=== PATIENT | male | born 1950 | race Caucasian/White ===

== ENCOUNTER → 2017-09-05 | Outpatient (CLI) | payer OTHER | LOC: BHLMT 09:00 | PROVIDERS: ATTEND Internal Medicine Interventional Cardiology | DX: I25.5 Ischemic cardiomyopathy (principal); I25.10 Atherosclerotic heart disease of native coronary artery without angina pectoris; E78.00 Pure hypercholesterolemia, unspecified | CPT/HCPCS: 93005-PO ==

== ENCOUNTER → 2018-07-22 | Outpatient (CLI) | payer OTHER | LOC: BMCIMAGING 10:58 | PROVIDERS: ATTEND Internal Medicine Rheumatology | DX: M46.1 Sacroiliitis, not elsewhere classified (principal); M19.041 Primary osteoarthritis, right hand; M19.042 Primary osteoarthritis, left hand ==

== ENCOUNTER 2018-09-24 05:39 | Inpatient (IN) | payer OTHER ==
[2018-09-24] MEDS ORDERED: ACETAMINOPHEN 500 MG TAB PO ONE (06:00)
[2018-09-24] MEDS ORDERED: fentaNYL 50 MCG in SYRINGE INTRATHECAL 1 SYR IT ONE (06:00)
[2018-09-24] MEDS ORDERED: morphINE PF 0.2 MG in SYRINGE INTRATHECAL 1 SYR IT ONE (06:00)
[2018-09-24] MEDS ORDERED: ceFAZolin 2 GM/DEXTROSE 100 ML IV ONE (06:00)
[2018-09-24] MEDS ORDERED: GABAPENTIN 300 MG CAP PO ONE (06:00)
[2018-09-24] MEDS ORDERED: TRANEXAMIC ACID 1,000 MG in NS 100 ML IV ONE (06:00)
[2018-09-24] MEDS ORDERED: LR 1,000 ML IV ONE (06:01)
[2018-09-24] MEDS ORDERED: THROMBIN (BOVINE) 5,000 UNIT VIAL TP ONE (06:34)
[2018-09-24] MEDS ORDERED: BUPIVACAINE/EPI 0.25% 30 ML SDV ONE ×2 (06:34→10:59)
[2018-09-24] MEDS ORDERED: CHLORHEXIDINE GLUC HIBICLENS 118 ML BTL TP ONE (06:35)
[2018-09-24] MEDS ORDERED: BACITRACIN 50,000 UNITS/10 ML SYR IRR ONE (06:35)
--- NOTE | 2018-09-24 06:52 | PDHPUP ---
History & Physical Update H&P update statement: This history and physical update is based on an assessment of the patient which was completed after admission or registration (within 24 hours), but prior to the surgery/procedure. H&P update: H&P reviewed & patient examined, no change in patient's condition since H&P completed
[2018-09-24] MEDS ORDERED: MIDAZOLAM 2 MG/2 ML VIAL IVP ONE (07:02)
--- NOTE | 2018-09-24 07:05 | PDANEPAE ---
ANE Past Medical History - Cardiovascular History Hx Hypertension: No Hx Arrhythmias: No Hx Chest Pain: No Hx Coronary Artery / Peripheral Vascular Disease: Yes Hx CHF / Valvular Disease: No Hx Palpitations: No Cardiovascular History Comment: CARDIOMYOPATHY. HYPERCHOLESTEROLEMIA. MS X2 - Pulmonary History Hx COPD: No Hx Asthma/Reactive Airway Disease: No Hx Recent Upper Respiratory Infection: No Hx Oxygen in Use at Home: No Hx Sleep Apnea: Yes Sleep Apnea Screening Result - Last Documented: Negative Pulmonary History Comment: HX - SARCOIDOSIS - Neurologic History Hx Cerebrovascular Accident: No Hx Seizures: No Hx Dementia: No - Endocrine History Hx Diabetes: Yes Obesity: mild Endocrine History Comment: PREDIABETES - Renal History Hx Renal Disorders: No - Liver History Hx Hepatic Disorders: No - Neurological & Psychiatric Hx Hx Neurological and Psychiatric Disorders: No - Cancer History Hx Cancer: No - Congenital Disorder History Hx Congenital Disorders: No - GI History GERD: no Hx Gastrointestinal Disorders: No - Other Health History Other Health History: GERD - Chronic Pain History Chronic Pain: Yes (NECK & LOW BACK) - Surgical History Prior Surgeries: BONE CYST R SHOULDER. PROSTATE TURP. CERVICAL FUSION. CARDIAC STENTS X2 ANGIOGRAMS. COLONOSCOPIES ANE Review of Systems Review of Systems: - Exercise capacity METS (RN): 5 METS ANE Patient History - Allergies Allergies/Adverse Reactions: Penicillins Allergy (Verified 09/10/18 11:39) Hives Sulfa (Sulfonamide Antibiotics) Allergy (Verified 09/10/18 11:39) Hives - Home Medications Home medications: home medication list seen and reviewed Home Medications: Allopurinol [Allopurinol 300 MG (RX)] 300 mg PO DAILY 09/10/18 [Last Taken 09/16 04:00] Carvedilol [Coreg (*)] 6.25 mg PO BIDMEAL 09/10/18 [Last Taken 09/24/18 04:00] Clopidogrel Bisulfate [Plavix (*)] 75 mg PO HS 09/10/18 [Last Taken 09/16/18] Ezetimibe [Zetia 10 MG (*)] 5 mg PO HS 09/10/18 [Last Taken Unknown] Meloxicam 15 mg PO DAILY 09/10/18 [Last Taken 09/16/18] Niacin [Niacin 500 mg (*)] 500 mg PO BID 09/10/18 [Last Taken Unknown] [place]-3 Fatty Acids [Fish Oil 1000 mg (*)] 1,000 mg PO DAILY 09/10/18 [Last Taken 09/16/18] Pioglitazone HCl [Actos 15mg (*)] 15 mg PO DAILY 09/10/18 [Last Taken 09/24/18 04:00] Ramipril [Altace] 10 mg PO HS 09/10/18 [Last Taken Unknown] Rosuvastatin Calcium [Crestor 10mg (RX)] 10 mg PO HS 09/10/18 [Last Taken Unknown] traMADol [Ultram 50 mg (*)] 50 mg PO Q4 PRN 09/10/18 [Last Taken Unknown] - NPO status NPO Status: no food or drink >8 hours NPO Since - Liquids (Date): 09/23/18 NPO Since - Liquids (Time): 00:00 NPO Since - Solids (Date): 09/23/18 NPO Since - Solids (Time): 19:00 - Anes Hx Anes 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 No anesthesia problems since.) - Smoking Hx Smoking Status: Never smoked ANE Labs/Vital Signs - Vital Signs Blood Pressure: 123/81 Heart Rate: 66 Respiratory Rate: 12 O2 Sat (%): 94 Height: 177.8 cm Weight: 88.451 kg ANE Physical Exam - Airway Neck exam: FROM Mallampati Score: Class 1 Mouth exam: normal dental/mouth exam - Pulmonary Pulmonary: no respiratory distress, no rales or rhonchi, clear to auscultation - Cardiovascular Cardiovascular: regular rate and rhythym, no murmur, rub, or gallop - ASA Status ASA Status: III ANE Anesthesia Plan Anesthesia Plan: general endotracheal anesthesia
[2018-09-24] MEDS ORDERED: KETAMINE 200 MG/20 ML VIAL ONE (07:17)
[2018-09-24] MEDS ORDERED: PROPOFOL 200 MG/20 ML VIAL ONE ×2 (07:18→09:46)
[2018-09-24] MEDS ORDERED: SUCCINYLCHOLINE CHLORIDE 200 MG/10 ML SYR IVP ONE (07:22)
[2018-09-24] MEDS ORDERED: DEXAMETHASONE 4 MG/ML VIAL ONE ×2 (07:22)
[2018-09-24] MEDS ORDERED: LIDOCAINE 2% 5 ML SDV ONE (07:22)
[2018-09-24] MEDS ORDERED: ONDANSETRON 4 MG/2 ML VIAL ONE (07:22)
[2018-09-24] MEDS ORDERED: PHENYLEPHRINE 10 MG/ML SDV ONE (07:36)
[2018-09-24] MEDS ORDERED: GLYCOPYRROLATE 0.2 MG/1 ML VIAL ONE (08:13)
[2018-09-24] MEDS ORDERED: ePHEDrine SULFATE 25 MG/5 ML SYR ONE (08:22)
[2018-09-24] MEDS ORDERED: NALOXONE HCL 0.4 MG/ML INJ IVP PRN ×2 (10:05→11:15)
[2018-09-24] MEDS ORDERED: PROMETHAZINE HCL 25 MG/ML INJ IVP PRN (10:05)
[2018-09-24] MEDS ORDERED: ENALAPRILAT DIHYDRATE 1.25 MG/ML VIAL IVP PRN (10:05)
[2018-09-24] MEDS ORDERED: LR 500 ML IV PRN (10:05)
[2018-09-24] MEDS ORDERED: ONDANSETRON 4 MG/2 ML VIAL IVP PRN ×2 (10:05→11:15)
[2018-09-24] MEDS ORDERED: MEPERIDINE 25 MG/0.5 ML AMP IVP PRN (10:05)
[2018-09-24] MEDS ORDERED: fentaNYL 100 MCG/2 ML INJ IVP PRN (10:05)
[2018-09-24] MEDS ORDERED: ACETAMINOPHEN 500 MG TAB PO PRN (10:05)
[2018-09-24] MEDS ORDERED: oxyCODONE IR 5 MG TAB PO PRN (10:05)
[2018-09-24] MEDS ORDERED: DIAZEPAM 10 MG/2 ML SYR IVP PRN (10:05)
[2018-09-24] MEDS ORDERED: ceFAZolin 1 GM VIAL ONE (10:52)
[2018-09-24] MEDS ORDERED: diphenhydrAMINE 25 MG CAP PO PRN (11:15)
[2018-09-24] MEDS ORDERED: NS 1,000 ML IV SCH (11:15)
[2018-09-24] MEDS ORDERED: MAGNESIUM HYDROXIDE 30 ML UDCUP PO PRN (11:15)
[2018-09-24] MEDS ORDERED: BISACODYL 10 MG SUPP PR PRN (11:15)
[2018-09-24] MEDS ORDERED: ONDANSETRON DISINTEGRATING 4 MG TAB PO PRN (11:15)
[2018-09-24] MEDS ORDERED: LACTULOSE 20 GM/30 ML UDCUP PO PRN (11:15)
--- NOTE | 2018-09-24 11:20 | SOAPPROG ---
SOAP Progress Note Assessment/Plan: Assessment: 68 yo M sp L4/5 TLIF Plan: stable PT/OT LSO brace when out of bed lovenox starts POD #1 FRANCISCO x 1 please call with neuro changes 09/24/18 11:19 Subjective: + back pain, no leg pain, Objective: Vital Signs Temp Pulse Resp BP Pulse Ox 37 C 66 12 123/81 H 94 09/24/18 06:08 09/24/18 07:05 09/24/18 07:05 09/24/18 07:05 09/24/18 07:05 somnolent PERRL, EOMI 5/5 + light touch ICD10 Worksheet Patient Problems: Problems Problem Status Onset Fusion of spine of lumbar region Acute - ICD10 Problem Qualifiers (1) Fusion of spine of lumbar region
--- NOTE | 2018-09-24 11:25 | POSTANESTH ---
Post Anesthetic Evaluation Cardiovascular Status: Normal, Stable, Similar to Pre-Op Cond Respiratory Status: Normal, Stable, Similar to Pre-op Cond. Level of Consciousness/Mental Status: Can Participate in Eval, Mildly Sleepy, Arousable Pain Control: Adequate, Prn Tx Ordered Nausea/Vomiting Control: Adequate, Prn Tx Ordered Complications Possibly Related to Anesthesia: None Noted
[2018-09-24] MEDS ORDERED: fentaNYL 100 MCG/2 ML INJ ONE (11:36)
--- NOTE | 2018-09-24 12:58 | GOP ---
[f rep st] OPERATIVE REPORT DATE OF OPERATION: 09/24/2018 SURGEON: Anthony Cota MD NEUROSURGEON: Anthony Cota MD DISTRIBUTOR SALES MANAGER: CARMEN Reed ANESTHESIA: General endotracheal. PREOPERATIVE DIAGNOSIS: Severe L4-5 degenerative joint disease with grade I unstable spondylolisthes is and spinal stenosis with lateral recess and foraminal impingement bilaterally. Intractable low ba ck pain and left greater than right lower extremity radicular and neurogenic claudication symptoms. Failed conservative care. POSTOPERATIVE DIAGNOSIS: Severe L4-5 degenerative joint disease with grade I unstable spondylolisthe sis and spinal stenosis with lateral recess and foraminal impingement bilaterally. Intractable low b ack pain and left greater than right lower extremity radicular and neurogenic claudication symptoms. Failed conservative care. PROCEDURE PERFORMED: Mini open exposure for left-sided far lateral transpedicular decompression at t he L4-5 level with L4-5 posterior nonsegmental (pedicle screw and axial device) fixation and posterol ateral fusion with local autograft, bone morphogenic protein and morselized allograft. L4-5 posterio r/transforaminal lumbar interbody fusion with 2 structural PEEK interbody spacers with local autograf t and bone morphogenic protein. Use of intraoperative microscopy fluoroscopy and computer volumetric stereotactic navigation with intraoperative neurophysiologic testing. Injection of intrathecal narc otic analgesics for postoperative pain control. FINDINGS: ESTIMATED BLOOD LOSS: 75 cc. INDICATIONS: The patient is a 68-year-old male with intractable low back pain and left greater than right lower extremity radicular and neurogenic claudication symptoms, secondary to a grade I unstabl e spondylolisthesis at the L4-5 level and severe spinal stenosis with lateral recess and foraminal im pingement. He presents now for surgical decompression and stabilization after failing conservative c are. DESCRIPTION OF PROCEDURE: After informed consent was obtained, patient was taken to the operating ro om and placed in the prone position on the Odin table. The lumbosacral area was prepped and drape d in a sterile fashion. After fluoroscopic localization of the correct levels, the subcutaneous and intramuscular tissues were infiltrated with local anesthesia. A midline linear incision was then created over the L4-5 spinous processes. This was carried down to the fascial layer, which was incised using monopolar electrocautery and carried in a subperiosteal p satinder along the spinal processes and out the lamina bilaterally. Intraoperative fluoroscopy was again utilized to verify the correct levels. Following this, the microscope was brought in and under high -power microscopic visualization, a left-sided far lateral transpedicular decompression was performed with complete unroofing of the facet joints and neural foramina at L4 and L5. The central canal was thoroughly decompressed, along with the right side where posterior hemilaminectomy defect was create d as well. There was a very large amount of scar tissue and synovial cyst that was stuck to the dura and required meticulous dissection for an extended period of time, but this was eventually thoroughl y decompressed bilaterally and rostrally and caudally. Following this, the Remedify neuronavigational system was brought in and using computer volumetric will reotactic navigation, pedicle screws were placed on the left. Intraoperative neurophysiologic testin g was performed in order to verify good position of the screws, along with biplanar fluoroscopy. A r od was then placed and secured under distraction, during which time a complete diskectomy was perform ed with preparation of the endplates and placement of 2 structural PEEK interbody spacers, local auto graft bone morphogenic protein and morselized allograft for an L4-5 posterior/transforaminal lumbar i nterbody fusion. The screw and anju system were then placed in a slight amount of compression in orde r to facilitate bony union and to minimize the potential for posterior graft migration. An axial dev ice was then placed in lieu of right-sided pedicle screws in order to maximize the bony surface area for the posterolateral fusion and minimize the additional risk associated with pedicle screws on that side. Following this, 200 mcg of Duramorph, along with 50 mcg of fentanyl were injected intrathecal ly for postoperative pain control at the L3-4 level. The remaining lamina and facet joint on the rig ht side were then extensively decorticated, along with the transverse processes and residual local au tograft, along with bone morphogenic protein and morselized allograft was placed out laterally for po sterolateral fusion at L4-5. A drain was then placed and after re-verification of good position of t he screws, rods, and interspinous process clamp, and interbody spacers using biplanar fluoroscopy, th e wound was closed in a layered fashion using interrupted Vicryl sutures, followed by Steri-Strips on the skin. COMPLICATIONS: None. DISPOSITION: The patient is currently in the process of being repositioned for extubation. /[id number]/MODL
--- NOTE | 2018-09-24 13:11 | PDMN ---
Medical Necessity Medical necessity: [facility] IP only surgery; cpt 85895 L4/5 TLIF
[2018-09-24] MEDS: ACETAMINOPHEN 500 MG TAB PO SCH ×2 (14:09→22:13)
[2018-09-24] MEDS: METHOCARBAMOL 750 MG TAB PO PRN (14:09)
[2018-09-24] MEDS: ceFAZolin 2 GM/DEXTROSE 100 ML IV SCH ×2 (14:10→22:14)
[2018-09-24] MEDS: CARVEDILOL 6.25 MG TAB PO SCH (17:19)
[2018-09-24] MEDS: POLYETHYLENE GLYCOL 3350 17 GM PKT PO SCH ×2 (17:19→22:13)
[2018-09-24] MEDS ORDERED: ROSUVASTATIN CALCIUM 10 MG TAB PO SCH (21:00)
[2018-09-24] MEDS ORDERED: RAMIPRIL 5 MG CAP PO SCH (21:00)
[2018-09-24] MEDS ORDERED: EZETIMIBE 10 MG TAB PO SCH (21:00)
[2018-09-24] MEDS: FAMOTIDINE 20 MG TAB PO SCH (21:14)
[2018-09-24] MEDS: SENNOSIDES/DOCUSATE SODIUM TAB PO SCH (21:14)
[2018-09-24] MEDS: NIACIN 500 MG TAB PO SCH (21:43)
[2018-09-25] MEDS: METHOCARBAMOL 750 MG TAB PO PRN ×2 (03:31→10:48)
[2018-09-25 05:17] LABS: PLATELET COUNT 171 10^3/uL (150-400)
[2018-09-25] MEDS: ACETAMINOPHEN 500 MG TAB PO SCH ×2 (06:46→13:22)
[2018-09-25] MEDS ORDERED: PIOGLITAZONE HCL 15 MG TAB PO SCH (09:00)
[2018-09-25] MEDS: CARVEDILOL 6.25 MG TAB PO SCH (09:00)
[2018-09-25] MEDS ORDERED: ENOXAPARIN 40 MG/0.4 ML SYR SC SCH (09:00)
[2018-09-25] MEDS ORDERED: ALLOPURINOL 300 MG TAB PO SCH (09:00)
[2018-09-25] MEDS: FAMOTIDINE 20 MG TAB PO SCH (09:00)
[2018-09-25] MEDS: POLYETHYLENE GLYCOL 3350 17 GM PKT PO SCH (09:02)
[2018-09-25] MEDS: NIACIN 500 MG TAB PO SCH (09:02)
[2018-09-25] MEDS: SENNOSIDES/DOCUSATE SODIUM TAB PO SCH (09:02)
--- NOTE | 2018-09-25 09:24 | NEUSURGPN ---
Date of Surgery: 09/24/18 Post Op Day: 1 Assessment/Plan: 68 yo male s/p TLIF at L4/5 - neuro stable - pain controlled - continue FRANCISCO drain - postop x-rays pending - PT/OT - wear brace when out of bed - dispo: possibly home later today with FRANCISCO Discussed with Dr. Anderson Subjective: Doing well this morning. No LE symptoms. Objective: Awake. Alert. PERRL. EOMI Facial expression symmetrical Muscle strength full at 5/5 Sensation intact - Physician Discussed Patient with DrMary: Cipriano Neurosurgery Physical Exam - Vitals, I&O, Labs I and O 09/24/18 09/25/18 09/26/18 05:59 05:59 05:59 Intake Total 2250 Output Total 2815 750 Balance -565 -750 Weight 88.451 kg Intake: Oral (ml) 900 IV Intake (ml) 1250 IV Infused (ml) 100 ceFAZolin 2 GM/DEXTROSE 100 100 ml @ 200 mls/hr IV Q8HRS PETRA Rx#:[id number] Output: Urine (ml) 2525 750 Catheter 1400 Toilet 550 200 Urinal 575 550 FRANCISCO Drain Output (ml) 290 #1 Posterior Back Odin 290 Johnson Other: Number of Voids Toilet 1 Urinal 1 Bladder Scan Volume (ml) Catheter 999 Vital Signs Temp Pulse Resp BP Pulse Ox 37.2 C 67 14 111/69 92 09/25/18 08:00 09/25/18 09:00 09/25/18 08:00 09/25/18 09:00 09/25/18 08:00 Laboratory Results 09/25/18 04:55 09/25/18 04:55 ICD10 Worksheet Patient Problems: Problems Problem Status Onset Fusion of spine of lumbar region Acute
[2018-09-25] MEDS: oxyCODONE IR 5 MG TAB PO PRN ×2 (09:27→13:27)
[2018-09-25 13:26] VITALS: BP 110/69
--- NOTE | 2018-09-25 15:38 | ASMTLACE ---
LACE Length of stay for Answers: 2 days current admission Acuity / Level of Answers: Yes Care: Did the patient have an inpatient admission? Comorbidities - select Answers: Coronary Artery Disease all that apply Diabetes (uncontrolled or controlled) Opioid dependence / Chronic pain Previous myocardial infarction # of Emergency department Answers: 0 visits in the last 6 months Score: 13 Date Signed: 09/25/2018 03:37 PM Electronically Signed By:JAMES Landers
--- NOTE | 2018-09-25 15:39 | ASMTCMCOM ---
CM Note CM Note Notes: Pt had planned surgery for DJD. Pt resides with spouse. OT rec home, PT rec outpatient. Pt medically stable for d/c, no CM d/c needs identified. Date Signed: 09/25/2018 03:38 PM Electronically Signed By:JAMES Landers
--- NOTE | 2018-10-01 11:27 | GDS ---
[f rep st] DISCHARGE SUMMARY ADMISSION DIAGNOSIS: Lumbar degenerative joint disease and stenosis. DISCHARGE DIAGNOSIS: Status post L4-5 transforaminal lumbar interbody fusion. HISTORY OF PRESENT ILLNESS: Please see admission History and Physical. HOSPITAL COURSE: The patient is a 68-year-old male who presented with lumbar degenerative joint dise ase and stenosis. He was taken to the operating room on 09/24/2018 where he underwent an L4-5 transf oraminal lumbar interbody fusion. There were no intraoperative complications. He was admitted to [facility] floor for observation. On the floor, he was tolerating a regular diet and his pain was controlled with p.o. pain medications. He was discharged home in stable condition on 09/25/2018. Patient was d ischarged with lumbar fusion instructions and it was recommended he return for neurosurgical followup appointment in 10 to 14 days. /[id number]/MODL
== END 2018-09-25 16:22 | disposition home or self-care (01) | DRG 455 ==
LOC: F1N 05:39 → F3N 12:30
PROVIDERS: ADMIT Neurological Surgery; ATTEND Neurological Surgery
DX: M47.26 Other spondylosis with radiculopathy, lumbar region (principal); M43.16 Spondylolisthesis, lumbar region; M48.062 Spinal stenosis, lumbar region with neurogenic claudication; M71.38 Other bursal cyst, other site; I25.10 Atherosclerotic heart disease of native coronary artery without angina pectoris; E78.00 Pure hypercholesterolemia, unspecified; R73.03 Prediabetes; K21.9 Gastro-esophageal reflux disease without esophagitis; Z98.1 Arthrodesis status; Z95.5 Presence of coronary angioplasty implant and graft
CPT/HCPCS: 97161-GP; 97165-GO; C1713; C1762; J0330; J0690; J1100; J1650; J2250; J2270; J2274; J2370; J2405; J2704; J3010